=== PATIENT | male | born 1950 | race Caucasian/White ===

== ENCOUNTER 2019-09-24 00:17 | Day surgery (SDC) | payer OTHER, SELFPAY ==
[2019-09-22 08:45] VITALS: BMI 27.6
[2019-09-24 08:06] VITALS: BP 134/72; PULSE 61; RESP 16; TEMP 36.6; O2SAT 98; BMI 28.2
[2019-09-24] MEDS: LACTATED RINGERS 1,000 ML 150 ML IV CONT (08:24)
--- NOTE | 2019-09-24 08:46 | P.PNAN_ITS ---
Anes - Initial Pre Proc Eval Procedure: Operation Date: 09/24/19 09:00 Proposed Procedures p Screening Colonoscopy - Dell Patel MD Date/Time: 09/24/19 08:46 Surgeon: Dell Patel MD Pre Op Diagnosis: Neoplasm Screening Patient Data Age: 69 Gender: M Height: 5 ft 9 in Weight: 86.8 kg Last Vital Signs Temp 97.8 F 09/24/19 08:06 Pulse 61 09/24/19 08:06 Resp 16 09/24/19 08:06 BP 134/72 09/24/19 08:06 Pulse Ox 98 09/24/19 08:06 Allergies Allergy/AdvReac Type Severity Reaction Status Date / Time No Known Allergies Allergy Verified 09/24/19 08:03 Home Medications Medication Instructions Recorded Confirmed Type atorvastatin 10 mg tablet 10 mg PO DAILY #30 tablet 08/25/19 09/22/19 Rx hydrochlorothiazide 12.5 mg tablet 12.5 mg PO DAILY 08/31/19 09/22/19 History lisinopril 20 mg tablet 20 mg PO DAILY 08/31/19 09/22/19 History paroxetine HCl 20 mg tablet 20 mg PO DAILY 08/31/19 09/22/19 History Patient hx anesthesia problems: none Family hx anesthesia problems: none PMFSH Past Medical History Medical History (Updated 09/24/19 @ 08:46 by Boom Cerrato MD) HLD (hyperlipidemia) HTN (hypertension) Family History Family History (Updated 05/23/18 @ 14:38 by DOCTOR UNKNOWN) Father Malignant neoplasm of prostate Social History Social History Smoking status: Former smoker Smoking end date: 08/12/81 Alcohol intake: never Anes - Eval Final PreProcedure Day of Procedure 09/24/19 08:46 Patient weight: normal Heart: regular rate and rhythm Lungs: clear to auscultation Airway: Mallampati scale class II Neurological: alert and oriented Last oral intake: >/= 8 hours ASA classification: II Emergent: no Anesthetic plan: proceed Anesthesia type and monitoring: general GIVS and standard monitoring Informed Consent: The patient's anesthetic plan and its attendant risks and b enefits were discussed with the patient/family/POA. Questions were solicited and answers provided to the satisfaction of the patient/family/POA.
--- NOTE | 2019-09-24 08:49 | PM.HPGS ---
History of Present Illness History of Present Illness Consent: Risks, benefits, and alternatives have been discussed and questions answered. Patient agrees to proceed with procedure. Chief complaint: Neoplasm Screening Narrative: Darío Daniel is a 69 year old male referred for screening colonoscopy. He has had polyps removed in the past. His last colonoscopy was about 5 years ago [facility] Past Medical History Medical History HLD (hyperlipidemia) HTN (hypertension) Family History Family History (Updated 05/23/18 @ 14:38 by DOCTOR UNKNOWN) Father Malignant neoplasm of prostate Social History Social History Smoking status: Former smoker Smoking end date: 08/12/81 Alcohol intake: never Meds Home Medications and Allergies Home Medications Medication Instructions Recorded Confirmed Type atorvastatin 10 mg tablet 10 mg PO DAILY #30 tablet 08/25/19 09/22/19 Rx hydrochlorothiazide 12.5 mg tablet 12.5 mg PO DAILY 08/31/19 09/22/19 History lisinopril 20 mg tablet 20 mg PO DAILY 08/31/19 09/22/19 History paroxetine HCl 20 mg tablet 20 mg PO DAILY 08/31/19 09/22/19 History Allergies Allergy/AdvReac Type Severity Reaction Status Date / Time No Known Allergies Allergy Verified 09/24/19 08:03 Vital Signs Vital Signs - 24 hr 09/24/19 08:06 Temperature 36.6 C Pulse Rate 61 Respiratory Rate 16 Blood Pressure 134/72 Pulse Oximetry 98 Exam Resp: Auscultation: clear to auscultation bilaterally Cardio: Rate: regular rate Rhythm: regular rhythm GI: GI Palp: Yes Soft to palpation and No Tenderness to palpation present (GI) Assessment and Plan Assessment and plan (1) Colon cancer screening: Code(s): Z12.11 - Encounter for screening for malignant neoplasm of colon Status: Acute Assessment and Plan: Colonoscopy with possible biopsy or polypectomy or cautery or injection of substances.
[2019-09-24 09:09] VITALS: BP 115/62; PULSE 61; RESP 21; O2SAT 100
[2019-09-24 09:19] VITALS: BP 110/72; PULSE 59; RESP 22; O2SAT 100
[2019-09-24 09:29] VITALS: BP 125/71; PULSE 58; RESP 17; O2SAT 100
== END 2019-09-24 09:36 | disposition home or self-care (01) ==
PROVIDERS: PCP Family Medicine; Visit Provider Internal Medicine Gastroenterology
PROC: 0DJD8ZZ Inspection of Lower Intestinal Tract, Via Natural or Artificial Opening Endoscopic (ICD-10-PCS; CPT 45378; principal; 2019-09-24 09:00)
DX: Z12.11 Encounter for screening for malignant neoplasm of colon (principal); D12.2 Benign neoplasm of ascending colon; K57.30 Diverticulosis of large intestine without perforation or abscess without bleeding; I10 Essential (primary) hypertension; E78.5 Hyperlipidemia, unspecified; Z87.891 Personal history of nicotine dependence
CPT/HCPCS: 45385; 88305; J2704; J7120

== ENCOUNTER → 2020-05-24 13:03 | Outpatient (REF) | payer OTHER, SELFPAY | LOC: ANHLAB 13:03 | PROVIDERS: PCP Family Medicine; Visit Provider Nurse Practitioner | DX: D18.01 Hemangioma of skin and subcutaneous tissue (principal); D23.72 Other benign neoplasm of skin of left lower limb, including hip | CPT/HCPCS: 88305; 88342 ==

== ENCOUNTER 2022-04-09 10:12 | Outpatient (CLI) | payer OTHER, SELFPAY ==
--- NOTE | ~2022-04-09 | XR_ITS ---
XR chest 2V DATE: 04/09/2022 10:40 INDICATION: Cough, congestion, fever for 2 weeks TECHNIQUE: PA and lateral views COMPARISON: None FINDINGS: Heart size is normal. No hilar or mediastinal enlargement. No pulmonary infiltrate or conso lidation, pleural effusion or pulmonary vascular congestion or pneumothorax is detected. Osteopenia. Mild thoracolumbar dextroscoliosis and degenerative change. IMPRESSION: No active cardiopulmonary disease Reviewed, dictated and finalized at location B.
== END 2022-04-09 10:13 | disposition home or self-care (01) ==
PROVIDERS: PCP Family Medicine; Visit Provider Physician Assistant
DX: R50.9 Fever, unspecified (principal); R05.9 Cough, unspecified
CPT/HCPCS: 71046

== ENCOUNTER 2023-04-29 11:50 | Outpatient (CLI) | payer OTHER, SELFPAY ==
[2023-04-29 12:45] LABS: Influenza A QL RT-PCR Negative (Negative); Influenza B QL RT-PCR Negative (Negative); SARS-CoV-2 RNA PCR Positive (Negative)
== END 2023-04-29 11:51 | disposition home or self-care (01) ==
PROVIDERS: PCP Family Medicine; Visit Provider Physician Assistant
DX: R50.9 Fever, unspecified (principal)
CPT/HCPCS: 87636

== ENCOUNTER 2024-10-12 00:12 | Day surgery (SDC) | payer MEDICARE, SELFPAY ==
[2024-09-29 13:30] VITALS: BMI 29.6
[2024-10-12 06:51] VITALS: BP 104/63; PULSE 68; RESP 18; TEMP 36.3; O2SAT 100
[2024-10-12] MEDS: LACTATED RINGERS 1,000 ML 150 ML IV CONT (06:59)
--- NOTE | 2024-10-12 07:00 | WPDANESEPPF ---
Anes - Initial Pre Proc Eval Procedure: Operation Date: 10/12/24 08:00 Proposed Procedures p Colonoscopy - Danish Mcclure MD Date/Time: 10/12/24 07:00 Surgeon: Danish Mcclure MD Pre Op Diagnosis: personal history of colon polyps Patient Data Age: 74 Gender: M Height: 1.75 m Weight: 89.3 kg Last Vital Signs Temp 36.3 C L 10/12/24 06:51 Pulse 68 10/12/24 06:51 Resp 18 10/12/24 06:51 BP 104/63 10/12/24 06:51 Pulse Ox 100 10/12/24 06:51 O2 Del Method Room Air 10/12/24 06:51 Allergies Allergy/AdvReac Type Severity Reaction Status Date / Time No Known Allergies Allergy Verified 10/12/24 06:48 Home Medications ?Medication ?Instructions ?Recorded ?Confirmed ?Type albuterol sulfate 90 mcg/actuation 1 puff inhalation Q4-6H PRN 04/29/23 09/29/24 Rx aerosol inhaler shortness of breath or wheezing #8.5 grams atorvastatin 10 mg tablet See Rx Instructions .Route 04/30/24 09/29/24 Rx .COMPLEX #90 tabs hydrochlorothiazide 12.5 mg tablet See Rx Instructions .Route 04/30/24 09/29/24 Rx .COMPLEX #90 tabs lisinopril 20 mg tablet See Rx Instructions .Route 04/30/24 09/29/24 Rx .COMPLEX #90 tabs paroxetine HCl 20 mg tablet 20 mg PO DAILY #90 tabs 08/31/24 09/29/24 Rx Patient hx anesthesia problems: none Family hx anesthesia problems: none Results Review: All pre-operative results and documents have been reviewed as part of the pre-operative evaluation. [facility] Past Medical History Medical History Palpitations HLD (hyperlipidemia) HTN (hypertension) Family History Family History Father Malignant neoplasm of prostate Mother Lymphoma Social History Social History (Updated 10/12/24 @ 07:00 by Elver Anthony MD) Smoking status: Former smoker Smoking end date: 08/12/81 Alcohol intake: never Substance use: never Substance use type: does not use Living arrangements: with family Additional living arrangements comments: with sp Occupation/Education: retired Gender identity (if verbalized by the patient): Male Anes - Evalida Final PreProcedure Day of Procedure 10/12/24 07:00 Patient weight: overweight Heart: regular rate and rhythm Lungs: clear to auscultation Airway: Mallampati scale class II Neurological: alert and oriented Last oral intake: >/= 8 hours ASA classification: II Emergent: no Anesthetic plan: proceed Anesthesia type and monitoring: general GIVS and standard monitoring Results Review: All pre-operative results and documents have been reviewed as part of the pre-operative evaluation. Informed Consent: The patient's anesthetic plan and its attendant risks and benefits were discussed with the patient/family/POA. Questions were solicited and answers provided to the satisfaction of the patient/family/POA.
--- NOTE | 2024-10-12 07:44 | PM.HPGS ---
History of Present Illness History of Present Illness Consent: Risks, benefits, and alternatives have been discussed and questions answered. Patient agrees to proceed with procedure. Chief complaint: personal history of colon polyps Narrative: Darío Daniel is a 74 year old male with colon polyp in 2019 Review of Systems Review of Systems: All systems reviewed & are unremarkable except as noted in HPI and below PMFSH Past Medical History Medical History Palpitations HLD (hyperlipidemia) HTN (hypertension) Family History Family History Father Malignant neoplasm of prostate Mother Lymphoma Social History Social History (Updated 10/12/24 @ 07:00 by Elver Anthony MD) Smoking status: Former smoker Smoking end date: 08/12/81 Alcohol intake: never Substance use: never Substance use type: does not use Living arrangements: with family Additional living arrangements comments: with sp Occupation/Education: retired Gender identity (if verbalized by the patient): Male Meds Home Medications and Allergies Home Medications ?Medication ?Instructions ?Recorded ?Confirmed ?Type albuterol sulfate 90 mcg/actuation 1 puff inhalation Q4-6H PRN 04/29/23 09/29/24 Rx aerosol inhaler shortness of breath or wheezing #8.5 grams atorvastatin 10 mg tablet See Rx Instructions .Route 04/30/24 10/12/24 Rx .COMPLEX #90 tabs hydrochlorothiazide 12.5 mg tablet See Rx Instructions .Route 04/30/24 10/12/24 Rx .COMPLEX #90 tabs lisinopril 20 mg tablet See Rx Instructions .Route 04/30/24 10/12/24 Rx .COMPLEX #90 tabs paroxetine HCl 20 mg tablet 20 mg PO DAILY #90 tabs 08/31/24 10/12/24 Rx Allergies Allergy/AdvReac Type Severity Reaction Status Date / Time No Known Allergies Allergy Verified 10/12/24 06:48 Vital Signs Vital Signs - 24 hr 10/12/24 06:51 Temperature 97.4 F L Pulse Rate 68 Respiratory Rate 18 Blood Pressure 104/63 Pulse Oximetry 100 Oxygen Delivery Room Air Exam Const: General: comfortable and no acute distress HENMT: Face/Nose/Sinus: Normal nares present Eyes: General: appearance normal, both eyes and all related structures Neck: Neck: no JVD Resp: Auscultation: clear to auscultation bilaterally Cardio: Rate: regular rate Rhythm: regular rhythm GI: Inspection: non-distended GI Palp: Yes Soft to palpation Skin: General skin exam: normal color Neuro: Speech: normal speech Extrem: General: normal to inspection Psych: Mental Status: mental status grossly normal Assessment and Plan Assessment and plan (1) History of colon polyps: Code(s): Z86.010 - Personal history of colon polyps Status: Acute Assessment and Plan: colonoscopy
[2024-10-12 08:02] VITALS: BP 80/45; PULSE 71; RESP 18; O2SAT 100
[2024-10-12 08:12] VITALS: BP 94/52; PULSE 67; RESP 16; O2SAT 100
[2024-10-12 08:22] VITALS: BP 91/51; PULSE 64; RESP 17; O2SAT 100
== END 2024-10-12 08:34 | disposition home or self-care (01) ==
PROVIDERS: PCP Family Medicine; Referring Provider Physician Assistant; Visit Provider Internal Medicine Gastroenterology
PROC: 0DJD8ZZ Inspection of Lower Intestinal Tract, Via Natural or Artificial Opening Endoscopic (ICD-10-PCS; CPT 45378; principal; 2024-10-12 08:00)
DX: Z12.11 Encounter for screening for malignant neoplasm of colon (principal); D12.5 Benign neoplasm of sigmoid colon; I10 Essential (primary) hypertension; E78.5 Hyperlipidemia, unspecified; Z87.891 Personal history of nicotine dependence; K64.8 Other hemorrhoids
CPT/HCPCS: 45385; 88305; J2003; J2704; J7120